=== PATIENT | female | born 1990 | race Caucasian/White ===

== ENCOUNTER 2016-12-07 22:41 | Emergency (ER) | payer OTHER ==
[2016-12-07] MEDS ORDERED: KETOROLAC TROMETHAMINE 30 MG/ML SOL IM ONE (22:49)
[2016-12-07] MEDS ORDERED: KETOROLAC TROMETHAMINE 30 MG/ML SOL ONE (22:50)
[2016-12-07 23:13] VITALS: BP 128/89; PULSE 90; RESP 16; TEMP 96.6; O2SAT 97
== END 2016-12-07 23:30 | disposition home or self-care (01) ==
LOC: ED 22:41
DX: S43.421A Sprain of right rotator cuff capsule, initial encounter (principal); X50.0XXA Overexertion from strenuous movement or load, initial encounter
CPT/HCPCS: 96372; 99282; 99283; J1885

== ENCOUNTER 2017-01-16 22:19 | Emergency (ER) | payer OTHER ==
[2017-01-16 22:33] VITALS: BP 129/83; PULSE 89; RESP 20; TEMP 97.9; O2SAT 100
[2017-01-16] MEDS ORDERED: PANTOPRAZOLE SODIUM 40 MG ECT PO ONE (23:14)
== END 2017-01-16 23:23 | disposition home or self-care (01) ==
LOC: ED 22:19
DX: S61.215A Laceration without foreign body of left ring finger without damage to nail, initial encounter (principal); W26.0XXA Contact with knife, initial encounter; Y99.0 Civilian activity done for income or pay
CPT/HCPCS: 99282

== ENCOUNTER 2017-05-12 18:39 | Emergency (ER) | payer OTHER ==
[2017-05-12] MEDS ORDERED: ALUMINUM/MAGNESIUM 30 ML SUS PO ONE (18:50)
[2017-05-12] MEDS ORDERED: ASPIRIN 81 MG CHEWABLE CTB PO ONE (19:06)
[2017-05-12] MEDS ORDERED: ASPIRIN 81 MG CHEWABLE CTB ONE (19:08)
[2017-05-12] MEDS ORDERED: ALUMINUM/MAGNESIUM 30 ML SUS ONE (19:08)
[2017-05-12 19:21] VITALS: TEMP 98.8
[2017-05-12] MEDS ORDERED: NITROGLYCERIN 0.4 MG TAB SL PRN (19:34)
[2017-05-12] MEDS ORDERED: LORAZEPAM 0.5 MG TAB PO ONE (19:43)
[2017-05-12] MEDS ORDERED: LORAZEPAM 0.5 MG TAB ONE (19:48)
[2017-05-12] MEDS ORDERED: NITROGLYCERIN 0.4 MG TAB SL ONE (19:48)
[2017-05-12 19:52] VITALS: O2SAT 100
[2017-05-12 19:59] LABS: HEMATOCRIT 41 % (35-47); HEMOGLOBIN 14.4 gm/dl (12.0-15.5); MEAN CORPUSCULAR HEMOGLOBIN 29.8 pg (27.0-32.0); MEAN CORPUSCULAR VOLUME 85 fL (81-99)
[2017-05-12 20:02] LABS: BLOOD UREA NITROGEN 15 mg/dl (7-18); CALCIUM 9.4 mg/dl (8.5-10.1); CARBON DIOXIDE 24.9 mEq/L (21-32); CHLORIDE 102 mMol/L (98-107); CREATINE KINASE 68 U/L (26-192); CREATININE 0.73 mg/dl (0.60-1.00); GLOM FILT RATE 96 mL/min (>60); GLUCOSE 100 mg/dl (74-106); POTASSIUM 3.8 mMol/L (3.5-5.1); SODIUM 139 mMol/L (136-145); TROP I < 0.017 ng/ml (0.000-0.056)
[2017-05-12 20:16] LABS: BAND NEUTROPHILS % (MANUAL) 3 %; BASOPHILS % (MANUAL) 0 % (0-3); EOSINOPHILS % (MANUAL) 4 % (0-9); LYMPHOCYTES % (MANUAL) 16 % (10-50); MONOCYTES % (MANUAL) 7 % (0-12); NEUTROPHILS % (MANUAL) 70 % (37-80); NORMAL RBCS PRESENT
[2017-05-12 20:20] VITALS: BP 143/79; PULSE 84; RESP 20
[2017-05-13] MEDS ORDERED: ASPIRIN 325 MG TAB PO SCH (09:00)
== END 2017-05-12 20:36 | disposition home or self-care (01) ==
LOC: ED 18:39
DX: R00.2 Palpitations (principal); F41.9 Anxiety disorder, unspecified
CPT/HCPCS: 36415; 71045; 80048; 82550; 84484; 85007; 85027; 93005; 99283; 99284; A9270-GY

== ENCOUNTER 2017-12-10 08:21 | Emergency (ER) | payer OTHER ==
[2017-12-10] MEDS ORDERED: DILTIAZEM ER 120 MG C24 ONE (08:58)
[2017-12-10] MEDS ORDERED: DILTIAZEM ER 120 MG C24 PO SCH (09:00)
[2017-12-10 09:09] LABS: BASOPHILS % (AUTO) 1 % (0-3); EOSINOPHILS % (AUTO) 10 % (0-9); HEMATOCRIT 41 % (35-47); HEMOGLOBIN 13.6 gm/dl (12.0-15.5); LYMPHOCYTES % (AUTO) 19.9 % (10-50); MEAN CORPUSCULAR HGB CONC 32.8 gm/dl (32.0-36.0); MEAN CORPUSCULAR VOLUME 86 fL (81-99); MONOCYTES % (AUTO) 9.5 % (0-12); NEUTROPHILS % (AUTO) 59.6 % (37-80)
[2017-12-10 09:25] LABS: ALBUMIN 3.5 gm/dl (3.4-5.0); ALKALINE PHOSPHATASE 58 IU/L (46-116); ALT 30 IU/L (14-63); AST 17 IU/L (15-37); BILIRUBIN,TOTAL 0.4 mg/dl (0.2-1.0); BLOOD UREA NITROGEN 13 mg/dl (7-18); CALCIUM 8.6 mg/dl (8.5-10.1); CARBON DIOXIDE 24.9 mEq/L (21-32); CHLORIDE 104 mMol/L (98-107); GLUCOSE 150 mg/dl (74-106); POTASSIUM 3.7 mMol/L (3.5-5.1); SODIUM 138 mMol/L (136-145); TOTAL PROTEIN 6.6 gm/dl (6.4-8.2); TROP I < 0.017 ng/ml (0.000-0.056)
[2017-12-10 11:55] VITALS: TEMP 98.2
[2017-12-10 12:20] VITALS: BP 124/78; PULSE 86; RESP 15; O2SAT 97
== END 2017-12-10 10:31 | disposition home or self-care (01) ==
LOC: ED 08:21
DX: R00.0 Tachycardia, unspecified (principal)
CPT/HCPCS: 36415; 80053; 84484; 85025; 93005; 99283; A9270-GY

== ENCOUNTER 2017-12-13 10:04 | Emergency (ER) | payer OTHER ==
[2017-12-13] MEDS ORDERED: SODIUM CHLORIDE 0.9% 1000ML 1,000 ML IV ONE (10:11)
[2017-12-13] MEDS ORDERED: ONDANSETRON HCL 4 MG/2 ML SOL IV ONE (10:11)
[2017-12-13] MEDS ORDERED: ALUMINUM/MAGNESIUM 30 ML SUS ONE (10:12)
[2017-12-13] MEDS ORDERED: LIDOCAINE HCL 2% (VISCOUS) 20 ML SOL MT ONE (10:12)
[2017-12-13] MEDS ORDERED: ONDANSETRON HCL 4 MG/2 ML SOL ONE (10:13)
[2017-12-13] MEDS ORDERED: LIDOCAINE HCL 2% (VISCOUS) 20 ML SOL ONE (10:13)
[2017-12-13] MEDS ORDERED: ALUMINUM/MAGNESIUM 30 ML SUS PO ONE (10:13)
[2017-12-13 10:33] LABS: BASOPHILS % (AUTO) 1 % (0-3); EOSINOPHILS % (AUTO) 6 % (0-9); HEMATOCRIT 46 % (35-47); HEMOGLOBIN 14.8 gm/dl (12.0-15.5); LYMPHOCYTES % (AUTO) 20.8 % (10-50); MEAN CORPUSCULAR HEMOGLOBIN 27.6 pg (27.0-32.0); MEAN CORPUSCULAR HGB CONC 32.3 gm/dl (32.0-36.0); MEAN CORPUSCULAR VOLUME 86 fL (81-99); MONOCYTES % (AUTO) 7.8 % (0-12); NEUTROPHILS % (AUTO) 64.6 % (37-80)
[2017-12-13] MEDS ORDERED: PANTOPRAZOLE SODIUM 40 MG/10 ML PDS ONE (10:38)
[2017-12-13 10:47] LABS: ALBUMIN 3.7 gm/dl (3.4-5.0); BILIRUBIN,TOTAL 0.4 mg/dl (0.2-1.0); CALCIUM 8.9 mg/dl (8.5-10.1); CARBON DIOXIDE 25.9 mEq/L (21-32); CREATININE 0.82 mg/dl (0.60-1.00); POTASSIUM 4.6 mMol/L (3.5-5.1); TOTAL PROTEIN 7.1 gm/dl (6.4-8.2)
[2017-12-13] MEDS ORDERED: PANTOPRAZOLE SODIUM 40 MG/10 ML PDS IV ONE (10:47)
[2017-12-13 11:08] VITALS: RESP 18; TEMP 97.6; O2SAT 99
[2017-12-13 11:53] VITALS: BP 138/76; PULSE 85
[2017-12-13 12:24] LABS: APPEARANCE,URINE SLIGHTLY CLOUDY; COLOR,URINE YELLOW; PH,URINE 8.5
[2017-12-13 12:25] LABS: BILIRUBIN,URINE NEGATIVE (NEGATIVE); EPITHELIAL CELLS 0-1 (SQUAMOUS); GLUCOSE, URINE (UA) NEGATIVE (NEGATIVE); KETONES,URINE NEGATIVE (NEGATIVE); LEUKOCYTE ESTERASE ,URINE NEGATIVE (NEGATIVE); NITRATE,URINE NEGATIVE (NEGATIVE); OCCULT BLOOD,URINE NEGATIVE (NEG-TRACE); RBC,URINE NEGATIVE (0-3AV/HPF); UROBILINOGEN,URINE 0.2 (0.2-1.0 EU); WBC,URINE NEGATIVE (0-5AV/HPF)
[2017-12-13 12:26] LABS: BACTERIA 2+ (< 1+); CRYSTALS 1+ (0-3 AVE/HPF)
== END 2017-12-13 12:30 | disposition home or self-care (01) ==
LOC: ED 10:04
DX: K52.9 Noninfective gastroenteritis and colitis, unspecified (principal); E86.0 Dehydration
CPT/HCPCS: 36415; 80053; 81001; 84703; 85025; 87088; 96365; 96374; 96375; 99283; 99284; J2405; A9270-GY

== ENCOUNTER 2018-04-05 20:14 | Emergency (ER) | payer OTHER ==
[2018-04-05 20:27] VITALS: PULSE 84; RESP 16; TEMP 97.2
[2018-04-05 21:23] VITALS: BP 149/66; O2SAT 98
== END 2018-04-05 21:19 | disposition home or self-care (01) | DRG 935 ==
LOC: ED 20:14
DX: T23.101A Burn of first degree of right hand, unspecified site, initial encounter (principal)
CPT/HCPCS: 99282